=== PATIENT | male | born 1990 | race Two or more races ===

== ENCOUNTER 2022-04-07 16:50 | Emergency (ER) | payer MEDICAID ==
[~2022-04-07] VITALS: Ht 162.6 cm; Wt 59.1 kg
[2022-04-07 16:52] VITALS: BP 130/91
[2022-04-07] MEDS ORDERED: normal saline 1000ML IV soln IVB ONE (18:00)
[2022-04-07] MEDS ORDERED: ondansetron/PF 4mg/2ml inj IV ONE (18:00)
[2022-04-07] MEDS ORDERED: pantoprazole 40 MG vial IV ONE (18:00)
[2022-04-07 18:01] LABS: BASOPHILS % (AUTO) 0.1 % (0-1); EOSINOPHILS % (AUTO) 0 % (0-6); HEMATOCRIT 47.8 % (42.0-52.0); HEMOGLOBIN 16.3 g/dl (14.0-17.9); LYMPHOCYTES # (AUTO) 1.3 X10'3 (1.1-4.8); LYMPHOCYTES % (AUTO) 6.6 % (21-51); MEAN CORPUSCULAR HEMOGLOBIN 31.3 PG (27.0-31.0); MEAN CORPUSCULAR HGB CONC 34.2 g/dL (33.0-36.5); MEAN CORPUSCULAR VOLUME 91.6 FL (78-98); MEAN PLATELET VOLUME 8.1 FL (7.4-10.4); MONOCYTES # (AUTO) 0.7 X10'3 (0-0.9); MONOCYTES % (AUTO) 3.5 % (2-12); NEUTROPHILS % (AUTO) 89.8 % (42-75); PLATELET COUNT 274 X10'3 (140-440); RED BLOOD COUNT 5.22 X10'6 (4.70-6.10)
[2022-04-07 18:02] LABS: ANION GAP 11 (8-16); BLOOD UREA NITROGEN 9 MG/DL (7-18); BUN/CREATININE RATIO 9.7 (5.4-32.0); CHLORIDE 105 MMOL/L (99-107); CREATININE 0.93 MG/DL (0.60-1.10); GLUCOSE 124 MG/DL (70-104); POTASSIUM 3.3 MMOL/L (3.5-5.1); SODIUM 141 MMOL/L (135-145)
[2022-04-07 18:03] LABS: ALANINE AMINOTRANSFERASE 28 U/L (12-78); ALBUMIN 4.6 G/DL (3.4-5.0); ALBUMIN/GLOBULIN RATIO 1.3 (1.1-1.5); ALKALINE PHOSPHATASE 106 IU/L (46-116); AMYLASE 49 U/L (25-115); ASPARTATE AMINO TRANSFERASE 19 U/L (10-37); BILIRUBIN,TOTAL 0.8 MG/DL (0.1-1.0); CALCIUM 9.5 MG/DL (8.5-10.1); LIPASE 72 U/L (73-393); TOTAL PROTEIN 8.2 G/DL (6.4-8.2); eGFR > 90 ML/MIN
[2022-04-07] MEDS ORDERED: morphine 2 MG/ML inj. syringe IV PRN (18:30)
[2022-04-07] MEDS ORDERED: pantoprazole 40MG/NS 100ML BAG 100 ML IV ONE ×2 (18:35→19:25)
[2022-04-07] MEDS ORDERED: ONDA8TAB13 PO (19:21)
[2022-04-07] MEDS ORDERED: PANT-47 PO (19:21)
== END 2022-04-07 20:22 | disposition home or self-care (01) ==
LOC: ER 16:51
DX: R11.10 Vomiting, unspecified (principal); R10.9 Unspecified abdominal pain; R12 Heartburn; F17.200 Nicotine dependence, unspecified, uncomplicated; Z88.8 Allergy status to other drugs, medicaments and biological substances; Z79.899 Other long term (current) drug therapy
CPT/HCPCS: 36415; 74022; 74176; 80053; 82150; 83690; 85025; 96361; 96374; 96375; 99285; C9113; J2405; J7030

== ENCOUNTER 2022-05-15 07:09 | Emergency (ER) | payer MEDICAID ==
[~2022-05-15] VITALS: Ht 162.6 cm; Wt 85.0 kg
[~2022-05-15 07:09] MED LIST: ONDA8TAB13 PO; PANT-47 PO
[2022-05-15 07:12] VITALS: BP 133/94
[2022-05-15] MEDS ORDERED: NAPR-56 PO (10:03)
[2022-05-15] MEDS ORDERED: AMOX500C2 PO (10:03)
== END 2022-05-15 10:21 | disposition home or self-care (01) ==
LOC: ER 07:09
DX: R68.84 Jaw pain (principal); Z88.8 Allergy status to other drugs, medicaments and biological substances
CPT/HCPCS: 70100; 99283

== ENCOUNTER 2023-06-24 20:37 | Emergency (ER) | payer MEDICAID ==
[~2023-06-24] VITALS: Ht 162.6 cm; Wt 81.8 kg
[~2023-06-24 20:37] MED LIST changes: +NAPR-56 PO
[2023-06-24 21:02] VITALS: BP 114/78; PULSE 80; RESP 16; O2SAT 98
[2023-06-24] MEDS ORDERED: AZIT250T2 PO (21:54)
[2023-06-24] MEDS ORDERED: dexamethasone 4mg tablet PO ONE (21:55)
[2023-06-24] MEDS ORDERED: diphenhydrAMINE 25mg capsule PO ONE (21:55)
[2023-06-24] MEDS ORDERED: ibuprofen tablet 400 MG TABLET PO ONE (21:55)
== END 2023-06-24 22:33 | disposition home or self-care (01) ==
LOC: ER 20:37
DX: J02.9 Acute pharyngitis, unspecified (principal); H92.01 Otalgia, right ear; R09.81 Nasal congestion
CPT/HCPCS: 99284; Q0163

== ENCOUNTER 2025-05-13 12:51 | Emergency (ER) | payer MEDICAID ==
[~2025-05-13] VITALS: Ht 162.6 cm; Wt 54.5 kg
[~2025-05-13 12:51] MED LIST changes: +ONDA-245 PO; -ONDA8TAB13 PO
[2025-05-13] MEDS: normal saline 1000ML IV soln IVB ONE (13:08)
[2025-05-13] MEDS: levetiracetamNACL 1500mg/100mL 100 ML IV SCH (13:19)
--- NOTE | 2025-05-13 13:23 | ELECTROCARDIOGRAPH REPORT ---
[facility] Test Date: 2025-05-13 Test Time: 13:21:41 Pat Name: SIERRA ONEAL Department: [facility]- Patient ID: [facility]-[id number] Room: Gender: M Applications Analyst: : 1990 Requested By: CIARAN JOHN Order Number: [id number] Reading MD: Measurements Intervals [place] Rate: 99 P: 48 AL: 195 QRS: 77 QRSD: 89 T: 32 QT: 343 QTc: 441 Interpretive Statements Sinus rhythm Minimal ST elevation, lateral leads Baseline wander in lead(s) V2 Please click the below link to view image of tracing.
[2025-05-13 13:29] LABS: MEAN PLATELET VOLUME 7.3 FL (7.4-10.4); RED CELL DISTRIBUTION WIDTH 12.8 % (11.5-14.5)
[2025-05-13 13:43] LABS: CREATININE 1.01 MG/DL (0.60-1.10); TOTAL CARBON DIOXIDE 21.4 MMOL/L (24-32); eCRCL 79 ML/MIN; eGFR 84 ML/MIN
[2025-05-13] MEDS ORDERED: KEP500T PO (14:13)
--- NOTE | 2025-05-13 14:13 | Physician Documentation ---
History of Present Illness ~ Chief Complaint: Seizure Stated Complaint: SZ Time Seen by MD: 12:53 Primary Medical Doctor: NONE Mode of Arrival: EMS HPI History, review of systems, physical examination is somewhat limited secondary to patient's clinical condition. The gentleman has a known history of seizures. Evidently he experienced a witnessed generalized tonic-clonic seizure. He was in his house, with a somewhat diminished air conditioning, on a very hot day, when heard a thud, came in found him seizing. Seizure lasted 2-3 minutes. Resolved spontaneously. Last breakthrough seizure was a year ago. He is not taking any antiepileptic medications. At the time of my examination he complains of being tired. He did not bite his tongue. He denies headache, chest pain, difficulty breathing, nausea, vomiting, diarrhea, abdominal pain. Denies use of tobacco, alcohol or illicit substances. Medication Reconciliation Allergies: Coded Allergies: guaifenesin (Verified Allergy, Intermediate, RASH, 05/13/25) Scheduled Levetiracetam (Keppra), 1 TAB PO Q12H Naproxen (Naproxen), 1 TAB PO Q12H Pantoprazole Sodium (PROTONIX tablet), 1 TAB PO DAILY Scheduled PRN Ondansetron 8mg ODT (Ondansetron Odt), 1 TAB PO TID PRN for nausea/vomiting Past Medical History Past Medical History: Seizures, *GI/HEPATOBILIARY*, Leukemia Past Surgical History: noncontributory Alcohol Use: None Drug Use: none Lives In: Home Occupation: employed Review of Systems ROS 10 point review of systems was performed and unless noted above in HPI is negative for acute process/complaint. Physical Exam Vital Signs: Temperature: 97.7, Source: Oral, Heart Rate: 100, Respiratory Rate: 22, BP: 122/69, Pulse Oximetry: 99, Weight: 54.500 Oxygen Flow Rate: 0 Physical Exam GENERAL: Awake, alert, oriented, GCS 15, no apparent distress, non-toxic appearing, answers questions, follows commands appropriately. Examined immediately upon arrival in bed 5. Per EMS glucose was 122 HEENT: Atraumatic, normocephalic, pupils equal, extraocular muscles intact, sclerae anicteric, mucus membranes moist, oropharynx is clear, no stridor. NECK: supple, full active range of motion, trachea midline, no thyromegaly, no lymphadenopathy, no JVD. CARDIOVASCULAR: Tachycardic and regular rate/rhythm, no murmurs/gallops/rubs, Pulses are 2+ in all extremities and symmetric. Capillary refill less than 2 seconds. PULMONARY: Nonlabored, good air movement ,no respiratory distress, speaking in full sentences, clear to auscultation bilaterally, no wheezing, no ronchi, no rales, no accessory muscle use. GASTROINTESTINAL: Soft, non-tender, non-distended, normal active bowel sounds, no organomegaly, no pulsatile masses, no CVA tenderness. NEUROLOGIC: Lucid with normal mental status. Normal facial symmetry. Moves all extremities symmetrically and with purpose. No truncal ataxia. Speech is fluid without evidence of dysarthria or aphasia, no focal deficits appreciated. MUSCULOSKELETAL: There is full range of motion of all extremities. There is no joint pain or joint swelling or joint erythema. There is no muscle pain or tenderness or swelling. EXTREMITIES: warm, well-perfused, no cyanosis, no clubbing, no edema, no acute deformities. Skin: warm, dry, no rashes or lesions, no jaundice, no petechiae orpurpura. No ecchymosis. PSYCHIATRIC: Normal affect, normal insight, normal concentration. Focused exam: [] Some lateral tongue biting on the right side of the tongue, no active bleeding Progress Results/Orders Results/Orders Orders - CIARAN JOHN DO Monitor (05/13/25 13:01) Saline Lock (05/13/25 13:01) Urinalysis, Cult If Indicated (05/13/25 13:01) Drug Screen, Urine (05/13/25 13:01) Levetiracetamnacl 1500mg/100ml (Levetira (05/13/25 13:10) Completed Orders - CIARAN JOHN DO Electrocardiogram (05/13/25 13:01) Cbc/Diff (05/13/25 13:01) CK (05/13/25 13:01) MG (05/13/25 13:01) Normal Saline 1000ml (0.9% Sodium Chlori (05/13/25 13:05) Hs Troponin I W Calculations (05/13/25 13:01) CMP (05/13/25 13:01) Lacticsepsis (05/13/25 13:01) Levetiracetamnacl 1500mg/100ml (Levetira (05/13/25 20:00) Medications Received in ER Medications (Trade) Dose Ordered Sig/Irish Route PRN Reason Start Time Stop Time Status Last Admin Dose Admin (0.9% sodium chloride (NS) 1000ml IV soln) 1,000 ml ONCE ONCE IVB 05/13/25 13:05 05/13/25 13:06 DC 05/13/25 13:08 1,000 ML Levetiracetam 100 ml @ 400 mls/hr Q12H IV 05/13/25 13:10 05/13/25 13:19 400 MLS/HR Vital Signs 05/13/25 05/13/25 05/13/25 12:55 13:27 13:27 Temp 97.7 Pulse 111 100 Resp 12 22 B/P (MAP) 118/72 122/69 (86) Pulse Ox 98 99 O2 Flow Rate 0 0 Laboratory Tests Test 05/13/25 13:11 White Blood Count 8.5 Red Blood Count 4.44 L Hemoglobin 14.1 Hematocrit 41.3 L Mean Corpuscular Volume 93.1 Mean Corpuscular Hemoglobin 31.8 H Mean Corpuscular Hemoglobin Concent 34.2 Red Cell Distribution Width 12.8 Platelet Count 306 Mean Platelet Volume 7.3 L Neutrophils (%) (Auto) 63.3 Lymphocytes (%) (Auto) 26.8 Monocytes (%) (Auto) 9.0 Eosinophils (%) (Auto) 0.4 Basophils (%) (Auto) 0.5 Neutrophils # (Auto) 5.4 Lymphocytes # (Auto) 2.3 Monocytes # (Auto) 0.8 Eosinophils # (Auto) 0.0 Basophils # (Auto) 0.0 CBC Comment Sodium Level 140 Potassium Level 3.9 Chloride Level 107 Carbon Dioxide Level 21.4 L Anion Gap 12 Blood Urea Nitrogen 10 Creatinine 1.01 Estimated GFR/1.73 m2 84 BUN/Creatinine Ratio 9.9 L Glucose Level 109 H Lactic Acid Level 5.9 *H Calcium Level 8.3 L Magnesium Level 2.3 Total Bilirubin 0.4 Aspartate Amino Transf (AST/SGOT) 14 Alanine Aminotransferase (ALT/SGPT) 29 Alkaline Phosphatase 111 Total Creatine Kinase 169 Troponin I High Sensitivity < 4 L Troponin I High Sens Percent Delta Troponin I Hi Sens Absolute Change Total Protein 7.7 Albumin 3.8 Globulin 3.9 Albumin/Globulin Ratio 1.0 L Chemistry Comments EKG/XRAY/CT/US/VASC/MRI EKG : Additional Comment EKG was obtained and interpreted by myself shows sinus rhythm of 99, normal OH interval, narrow QRS, no QT prolongation, normal axis, no STEMI. Medical Decision Making Findings Facility Status: ED Holds, RME process The plan was discussed with the patient, who demonstrates clear understanding of the plan and is in agreement with the plan unless otherwise noted in the chart. All questions have been answered, all concerns were addressed unless otherwise documented. I was available throughout their ED stay for frequent reassessment and questions. Differential Diagnoses (considered and possible or likely): [Breakthrough seizure, dehydration, electrolyte derangement, urinary tract infection, pneumonia, occult bacteremia, medication noncompliance, heat stroke, heat exhaustion] ??Differential Diagnoses (considered and unlikely, not requiring evaluation currently): [No evidence of lateralizing signs to suspect a CVA] MDM Data Please see [facility] for the following: Independent Historians and external Records Review. Historian: [Patient] Independent Historians: ?[EMS] Medication Management: [Reviewed medication list] Social History and determinants: [Reviewed] Please see the body of the note for the following: Any independent interpretations of ECG, imaging studies. All vitals signs/haemodynamics, ordered tests were independently reviewed and interpreted by myself. Nursing triage complaint and vitals reviewed, additional nursing notes were reviewed as available and I agree unless otherwise noted or documented in contradiction in the chart Vital Signs: Independently reviewed Labs: Independently interpreted Imaging: Independently interpreted Old Medical Records: Independently reviewed, see [facility] for relevant summary and information Pulse Oximetry: [100%] interpreted as [normal on room air] by me [Route Supervisor: Tachycardic Rate, Regular rhythm, no ectopy, sinus tachycardic. reviewed and interpreted by me] Additionally notably showing: [Initially tachycardic, tachycardia has a resolved with the rest and fluids. Laboratory workup notable for elevated lactate, as expected for seizure.] Otherwise unremarkable CBC and CMP. Tests considered but not ordered include: [Imaging does not appear to be necessary in the setting of known seizures] Social Determinants of Health Impact: Patient was evaluated in [facility], [facility] [place] healthcare due to below par ratio of patient to medical providers. [] Comorbid Conditions Impacting Present Evaluation and Care/Treatment: [Untreated epilepsy] Management Discussions with other Healthcare Providers: [] Treatment and Disposition Medication Management (Given or considered): [Fluid bolus and Keppra load]. See EMR for details Consideration for Hospitalization/Escalation/Deescalation of Care: Admission for observation has been considered, [however the patient is able to tolerate p.o., their symptoms are controlled, they are able to rely on oral medications, and their chief complaint/diagnosis can be managed on outpatient basis.] ?ED Course:?[No clinical deterioration. No recurrence of seizure. Patient returned to baseline mentation.] ?Shared decision making:?[Patient is hemodynamically stable for discharge home with follow with their primary care provider. [ ] Specific and cautious return precautions provided and discussed with full understanding. Any incidental findings were also discussed and follow up recommendations given. [] All questions answered. Patient/family were able to verbalize back return precautions. Patient/family agree to plan. Copies of imaging and laboratory studies were provided.] Code status:?FULL Please see the full Electronic Medical Record for full details of nursing documentation, medications list, other records of complete past medical history and conditions, vital signs, laboratory studies, and any radiologic study interpretations by radiologists. Portions of this note were completed using [email or web address] dictation software and as a result there may exist minor errors in spelling. I have reviewed elements of past family and social history and agree as included in note. Departure Disposition: HOME / SELF CARE / HOMELESS Impression: Primary Impression: Breakthrough seizure Condition: Improved Discharge Instructions: Seizure, Adult Referrals: NO PRIMARY CARE PROVIDER (PCP) Prescriptions Levetiracetam (Keppra) 500 Mg Tablet 1 TAB PO Q12H for 30 Days, #60 TAB 0 Refills Prov: CIARAN JOHN DO 05/13/25 Education Educated: Patient Educated regarding: diagnosis, treatment, prognosis, need for follow up Signature Scribe Signature: No scribe Attestation: This note accurately reflects clinical decisions, work performed by myself, DO DORA Jasmine NICHOLAS M DO May 13, 2025 14:13
[2025-05-13 15:43] VITALS: BP 102/63; PULSE 89; RESP 13; TEMP 98; O2SAT 98
[2025-05-13] MEDS ORDERED: levetiracetamNACL 1500mg/100mL 100 ML IV SCH (20:00)
== END 2025-05-13 15:47 | disposition home or self-care (01) ==
LOC: ER 12:52
DX: G40.909 Epilepsy, unspecified, not intractable, without status epilepticus (principal); Z88.8 Allergy status to other drugs, medicaments and biological substances; Z79.899 Other long term (current) drug therapy
CPT/HCPCS: 36415; 80053; 82550; 83605; 83735; 84484; 85025; 93005; 96361; 96374; 99284; J1953; J7030